=== PATIENT | female | born 1960 | race Caucasian/White ===

== ENCOUNTER 2020-05-02 17:22 | Outpatient (CLI) | payer OTHER, SELFPAY ==
--- NOTE | ~2020-05-02 | MM_ITS ---
EXAMINATION: MM screening [facility] BI w gabrielle HISTORY: Screening mammogram TECHNIQUE: Craniocaudal and mediolateral oblique 3-D tomosynthesis images were obtained and synthetic 2-D images were generated. CAD analysis was submitted and interpreted. COMPARISON: 03/30/2019, 03/26/2018, 03/06/2017 BREAST PARENCHYMAL COMPOSITION: There are scattered areas of fibroglandular density. FINDINGS: There is no evidence of suspicious mass, calcification, or architectural distortion to sugg est malignancy in either breast. There has been no suspicious interval change. IMPRESSION: 1. No mammographic evidence of malignancy. 2. Recommend routine screening mammography in one year. BI-RADS Category 1: Negative Reviewed, dictated and finalized at location A. AL DRILL OPERATOR
== END 2020-05-02 17:23 | disposition home or self-care (01) ==
LOC: ANHIMG 17:32
PROVIDERS: PCP Family Medicine; Visit Provider Family Medicine
DX: Z12.31 Encounter for screening mammogram for malignant neoplasm of breast (principal)
CPT/HCPCS: 77063; 77067

== ENCOUNTER 2021-03-31 00:54 | Day surgery (SDC) | payer OTHER, SELFPAY ==
[2021-03-19 12:38] VITALS: BMI 38.3
[2021-03-31 08:23] VITALS: BP 138/74; PULSE 80; RESP 17; TEMP 36.8; O2SAT 100; BMI 38.1
--- NOTE | 2021-03-31 08:33 | PM.HPGS ---
History of Present Illness History of Present Illness Consent: Risks, benefits, and alternatives have been discussed and questions answered. Patient agrees to proceed with procedure. Chief complaint: neoplasm screening Z12.11 hx of colon polyps z86.0 Narrative: Rebeka Becerril is a 60 year old female referred for colon cancer screening. She had an adenomatous polyp removed 5 years ago Review of Systems Review of Systems: All systems reviewed & are unremarkable except as noted in HPI and below PMFSH Past Medical History Medical History Hypertension Tubular adenoma of colon Family History Family History Father Patient's father is in good health Hypertension Sibling Patient's sister is in good health Family history of diabetes mellitus in first degree relative Diabetes mellitus Mother Family history of dementia, Onset Age: 68 Patient's mother is Cerebrovascular accident Family history of malignant neoplasm of cervix Grandparent Diabetes mellitus Social History Social History Social History: Smoking status: Never smoker Second hand tobacco smoke exposure: No Alcohol intake: former Substance use: never Substance use type: does not use Living arrangements: alone Gender identity (if verbalized by the patient): Female Sexual Orientation (if Verbalized by the Patient): Straight or Heterosexual Spiritual care concerns: No Meds Home Medications and Allergies Home Medications Medication Instructions Recorded Confirmed Type hydrochlorothiazide 12.5 mg tablet 12.5 mg PO DAILY #90 tablet 02/28/21 03/31/21 Rx losartan 50 mg PO BID 03/19/21 03/31/21 History Allergies Allergy/AdvReac Type Severity Reaction Status Date / Time No Known Allergies Allergy Verified 03/31/21 08:22 Vital Signs Vital Signs - 24 hr 03/31/21 08:23 Temperature 36.8 C Pulse Rate 80 Respiratory Rate 17 Blood Pressure 138/74 Pulse Oximetry 100 Exam Resp: Auscultation: clear to auscultation bilaterally Cardio: Rate: regular rate Rhythm: regular rhythm GI: GI Palp: Yes Soft to palpation and No Tenderness to palpation present (GI) Assessment and Plan Assessment and plan (1) Colon cancer screening: Code(s): Z12.11 - Encounter for screening for malignant neoplasm of colon Status: Acute Assessment and Plan: Colonoscopy with possible biopsy or polypectomy or cautery or injection of substances.
[2021-03-31] MEDS: LACTATED RINGERS 1,000 ML 150 ML IV CONT (08:34)
--- NOTE | 2021-03-31 08:44 | P.PNAN_ITS ---
Anes - Initial Pre Proc Eval Procedure: Operation Date: 03/31/21 09:30 Proposed Procedures p Screening Colonoscopy - Herminio Art MD Date/Time: 03/31/21 08:44 Surgeon: Herminio Art MD Pre Op Diagnosis: neoplasm screening Z12.11 hx of colon polyps z86.0 Patient Data Age: 60 Gender: F Height: 1.65 m Weight: 104 kg Last Vital Signs Temp 36.8 C 03/31/21 08:23 Pulse 80 03/31/21 08:23 Resp 17 03/31/21 08:23 BP 138/74 03/31/21 08:23 Pulse Ox 100 03/31/21 08:23 Allergies Allergy/AdvReac Type Severity Reaction Status Date / Time No Known Allergies Allergy Verified 03/31/21 08:22 Home Medications Medication Instructions Recorded Confirmed Type hydrochlorothiazide 12.5 mg tablet 12.5 mg PO DAILY #90 tablet 02/28/21 03/31/21 Rx losartan 50 mg PO BID 03/19/21 03/31/21 History Patient hx anesthesia problems: none Family hx anesthesia problems: post op nausea/vomiting Results Review: All pre-operative results and documents have been reviewed as part of the pre-operative evaluation. [facility] Past Medical History Medical History Hypertension Tubular adenoma of colon Family History Family History Father Patient's father is in good health Hypertension Sibling Patient's sister is in good health Family history of diabetes mellitus in first degree relative Diabetes mellitus Mother Family history of dementia, Onset Age: 68 Patient's mother is Cerebrovascular accident Family history of malignant neoplasm of cervix Grandparent Diabetes mellitus Social History Social History Social History: Smoking status: Never smoker Second hand tobacco smoke exposure: No Alcohol intake: former Substance use: never Substance use type: does not use Living arrangements: alone Gender identity (if verbalized by the patient): Female Sexual Orientation (if Verbalized by the Patient): Straight or Heterosexual Spiritual care concerns: No Anes - Eval Final PreProcedure Day of Procedure 03/31/21 08:44 Patient weight: obese Heart: regular rate and rhythm Lungs: clear to auscultation Airway: Mallampati scale class II Neurological: alert and oriented Last oral intake: >/= 8 hours ASA classification: II Emergent: no Anesthetic plan: proceed Anesthesia type and monitoring: general GIVS and standard monitoring Results Review: All pre-operative results and documents have been reviewed as part of the pre-operative evaluation. Informed Consent: The patient's anesthetic plan and its attendant risks and benefits were discussed with the patient/family/POA. Questions were solicited and answers provided to the satisfaction of the patient/family/POA.
[2021-03-31 09:27] VITALS: BP 113/66; PULSE 68; RESP 17; O2SAT 96
[2021-03-31 09:37] VITALS: BP 115/65; PULSE 66; RESP 14; O2SAT 97
[2021-03-31 09:47] VITALS: BP 117/63; PULSE 65; RESP 17; O2SAT 99
== END 2021-03-31 10:01 | disposition home or self-care (01) ==
PROVIDERS: PCP Family Medicine; Visit Provider Internal Medicine Gastroenterology
PROC: 0DJD8ZZ Inspection of Lower Intestinal Tract, Via Natural or Artificial Opening Endoscopic (ICD-10-PCS; CPT 45378; principal; 2021-03-31 09:30)
DX: Z12.11 Encounter for screening for malignant neoplasm of colon (principal); K57.30 Diverticulosis of large intestine without perforation or abscess without bleeding; Z86.010 Personal history of colon polyps; I10 Essential (primary) hypertension; E66.9 Obesity, unspecified; Z68.38 Body mass index [BMI] 38.0-38.9, adult
CPT/HCPCS: 45378; J2001; J2704; J7120

== ENCOUNTER 2021-06-03 16:27 | Outpatient (CLI) | payer OTHER, SELFPAY ==
--- NOTE | ~2021-06-03 | MM_ITS ---
EXAMINATION: MM screening [facility] BI w agbrielle HISTORY: Screening mammogram TECHNIQUE: Craniocaudal and mediolateral oblique 3-D tomosynthesis images were obtained and synthetic 2-D images were generated. CAD analysis was submitted and interpreted. COMPARISON: 05/02/2020, 03/30/2019, 03/26/2018 bilateral screening mammogram examinations BREAST PARENCHYMAL COMPOSITION: There are scattered areas of fibroglandular density. FINDINGS: There is no evidence of suspicious mass, calcification, or architectural distortion to sugg est malignancy in either breast. There has been no suspicious interval change. IMPRESSION: 1. No mammographic evidence of malignancy. 2. Recommend routine screening mammography in one year. BI-RADS Category 1: Negative Reviewed, dictated and finalized at location A. ION SHOW DIRECTOR
== END 2021-06-03 16:28 | disposition home or self-care (01) ==
LOC: ANHIMG 16:28
PROVIDERS: PCP Family Medicine; Visit Provider Family Medicine
DX: Z12.31 Encounter for screening mammogram for malignant neoplasm of breast (principal)
CPT/HCPCS: 77063; 77067

== ENCOUNTER 2021-08-23 10:17 | Emergency (ER) | payer OTHER, SELFPAY ==
--- NOTE | ~2021-08-23 | XR_ITS ---
EXAMINATION: XR chest 2V DATE: 08/23/2021 10:51 INDICATION: Shortness of breath. Palpitations. TECHNIQUE: Frontal and lateral views of the chest were obtained. COMPARISON: None. FINDINGS: The chest demonstrates clear lungs without pneumonia, pleural effusion, or pneumothorax. Th e heart size is normal. IMPRESSION: 1. No acute cardiopulmonary disease. Reviewed, dictated and finalized at location A. ANCE CONSULTANT
--- NOTE | 2021-08-23 10:29 | ECG_ITS ---
Measurements Intervals [place] Rate: 86 P: -3 FL: 154 QRS: 13 QRSD: 87 T: 21 QT: 364 QTc: 437 Interpretive Statements SINUS RHYTHM POOR R-WAVE PROGRESSION BORDERLINE ECG NO PREVIOUS ECG AVAILABLE FOR COMPARISON Electronically Signed On 08-23-2021 14:33:52 PLASTICS ENGINEERING TEACHER by Adrián Noble M.D.
[2021-08-23 10:31] VITALS: BP 130/78; PULSE 86; RESP 18; TEMP 36.8; O2SAT 100
--- NOTE | 2021-08-23 10:39 | ED.ANXIETY ---
HPI - Anxiety General Chief Complaint: Arrhythmia/Palpitations <ETTA Matias Last Filed: 08/23/21 12:57> Stated Complaint: poss anxiety <ETTA Matias Last Filed: 08/23/21 12:57> Time Seen by Provider: 08/23/21 10:29 <ETTA Matias Last Filed: 08/23/21 12:57> Source: patient <ETTA Matias Last Filed: 08/23/21 12:57> Mode of arrival: EMS <ETTA Matias Last Filed: 08/23/21 12:57> Limitations: no limitations <ETTA Matias Last Filed: 08/23/21 12:57> History of Present Illness HPI narrative: This is a 61-year-old female that presents to the emergency department for acute anxiety. Reports she has had a lot of stress at home and work. Reports she quit her job yesterday. She had seen her primary earlier this week and was started on Escitalopram. Today she was moving things out of her office when she started to become quite anxious. Reports she went to sit on the couch and felt very hot. She felt tingling all over her body. She felt like she had to take deep breaths to catch her breath. She reports feeling better at this time. She did not have any chest pain. Denies thoughts of harming herself or anyone else. <ETTA Matias Last Filed: 08/23/21 12:57> Related Data Allergies/Adverse Reactions: Allergies Allergy/AdvReac Type Severity Reaction Status Date / Time No Known Allergies Allergy Verified 08/23/21 10:36 <ETTA Matias Last Filed: 08/23/21 12:57> Review of Systems Review of Systems: CONSTITUTIONAL: Denies fever CARDIOVASCULAR: Reports palpitations. Denies chest pain or edema. RESPIRATORY: Reports dyspnea. NEUROLOGIC: Denies numbness PSYCHIATRIC: Reports anxiety <ETTA Matias Last Filed: 08/23/21 12:57> All systems reviewed & are unremarkable except as noted in HPI and below <Fanta Michael PA-C - Last Filed: 08/23/21 12:57> [facility] Past Medical History Medical History: Medical History Hypertension Tubular adenoma of colon <Fanta Michael PA-C - Last Filed: 08/23/21 12:57> Family History Family History: Family History Father Patient's father is in good health Hypertension Sibling Patient's sister is in good health Family history of diabetes mellitus in first degree relative Diabetes mellitus Mother Family history of dementia, Onset Age: 68 Patient's mother is Cerebrovascular accident Family history of malignant neoplasm of cervix Grandparent Diabetes mellitus <ETTA Matias Last Filed: 08/23/21 12:57> Social History Social History: Social History (Updated 08/20/21 @ 07:23 by Edith Boateng) Social History: Smoking status: Never smoker Second hand tobacco smoke exposure: No Alcohol intake: former Substance use: never Substance use type: does not use Gender identity (if verbalized by the patient): Female Sexual Orientation (if Verbalized by the Patient): Straight or Heterosexual Spiritual care concerns: No <ETTA Matias Last Filed: 08/23/21 12:57> Exam Narrative: GENERAL: Well-appearing, well-nourished, and in no acute distress. HEAD: Normocephalic, atraumatic. EYES: PERRLA and EOMI. ENT: Nares clear, no rhinorrhea or epistaxis. Mucous membranes moist. Oropharynx without tonsillar hypertrophy exudate or other lesions. Bilateral TMs pearly kurtz non-bulging NECK: Supple. No adenopathy or masses. CHEST: Clear to auscultation. No respiratory distress. No wheezes rales or rhonchi HEART: Regular rate and rhythm. No murmur heard. Normal peripheral pulses. EXTREMITIES: Normal range of motion. No edema. SKIN: Warm, dry, no rash. NEURO: No focal deficits. Alert and oriented x3. Cranial nerves II through XII grossly intact PSYCH: Anxious, tearful <ETTA Matias
[2021-08-23] MEDS: LORazepam INJ (*CRX) 2 MG/ML VIAL 0.5 MG IV PUSH (10:44)
[2021-08-23 11:15] VITALS: BP 107/73; PULSE 76; RESP 18; O2SAT 98
[2021-08-23 11:15] LABS: Basophils Absolute Auto 0.1 K/mm3 (0.0-0.1); Basophils Percent Auto 0.8 % (0.2-1.2); Eosinophils Percent Auto 0.5 % (0-4.4); Hematocrit 42.7 % (37.0-47.0); Immature Granulocyte Absolute 0.04 K/mm3 (0.00-0.031); Immature Granulocyte Percent A 0.7 % (0-0.5); Lymphocytes Absolute Auto 1.23 K/mm3 (0.9-3.2); Lymphocytes Percent Auto 20.7 % (18.3-44.2); Mean Corpuscular HGB Conc 32.8 g/dl (32-36); Mean Corpuscular Hemoglobin 30.2 pg (26-34); Mean Platelet Volume 9.9 fl (7.4-10.4); Monocytes Absolute Auto 0.4 K/mm3 (0.1-0.6); Monocytes Percent Auto 6.6 % (2.6-8.5); Neutrophils Absolute Auto 4.2 K/mm3 (1.3-6.7); Neutrophils Percent Auto 70.7 % (45.5-73.1); Platelet Count Result 290 k/mm3 (150-375); Red Blood Count 4.64 M/mm3 (4.2-5.4); Red Cell Distribution Width 13.8 % (11.5-14.5); White Blood Count 5.9 K/mm3 (4.5-10.0)
[2021-08-23 11:25] LABS: INR 1.1; Prothrombin Time 13.6 Seconds (11.1-14.7)
[2021-08-23 11:26] LABS: Partial Thromboplastin Time 26.4 SECONDS (22.3-36.8)
[2021-08-23 11:27] LABS: Alanine Aminotransferase 30 U/L (4-35); Albumin Level 4.3 g/dL (3.5-5.1); Alkaline Phosphatase 84 U/L (38-126); Anion Gap 9 mmol/L (8-16); Aspartate Amino Transferase 27 U/L (14-36); Bilirubin,Total 0.6 mg/dL (0.2-1.3); Blood Urea Nitrogen 17 mg/dL (7-17); Calcium 8.6 mg/dL (8.4-10.2); Carbon Dioxide 24 mmol/L (22-30); Chloride 102 mmol/L (98-107); Estimated CRCL calculation 75 ml/min; Estimated Glomerular Filt Rate > 60; Glucose 120 mg/dL (65-110); Lipase 160 U/L (23-300); Potassium 3.7 mmol/L (3.4-5.0); Sodium 135 mmol/L (137-145)
[2021-08-23 11:37] LABS: Troponin I < 0.012 ng/mL (0.000-0.034)
[2021-08-23 13:08] VITALS: BP 114/78; PULSE 78; RESP 18; O2SAT 98
== END 2021-08-23 13:13 | disposition home or self-care (01) ==
PROVIDERS: Physician Assistant; Emergency Provider General Practice; PCP Family Medicine
DX: F41.9 Anxiety disorder, unspecified (principal); I10 Essential (primary) hypertension; Z85.038 Personal history of other malignant neoplasm of large intestine; R94.31 Abnormal electrocardiogram [ECG] [EKG]; R06.02 Shortness of breath
CPT/HCPCS: 36415; 71046; 80053; 83690; 84443; 84484; 85025; 85610; 85730; 93005; 96374; 99284; J2060

== ENCOUNTER 2022-08-05 16:27 | Outpatient (CLI) | payer OTHER, SELFPAY ==
--- NOTE | ~2022-08-05 | MM_ITS ---
EXAMINATION: MM screening [facility] BI w gabrielle HISTORY: Screening mammogram TECHNIQUE: Craniocaudal and mediolateral oblique 3-D tomosynthesis images were obtained and synthetic 2-D images were generated. CAD analysis was submitted and interpreted. COMPARISON: 06/03/2021, 05/02/2020, 03/30/2019 bilateral screening mammogram examinations BREAST PARENCHYMAL COMPOSITION: There are scattered areas of fibroglandular density. FINDINGS: Stable circumscribed likely benign lymph node, upper outer right breast There is no evidenc e of suspicious mass, calcification, or architectural distortion to suggest malignancy in either [address] There has been no suspicious interval change. IMPRESSION: 1. No mammographic evidence of malignancy. 2. Recommend routine screening mammography in one year. BI-RADS Category 1: Negative Reviewed, dictated and finalized at location A. ER INSPECTOR
== END 2022-08-05 16:28 | disposition home or self-care (01) ==
PROVIDERS: PCP Family Medicine; Visit Provider Family Medicine
DX: Z12.31 Encounter for screening mammogram for malignant neoplasm of breast (principal)
CPT/HCPCS: 77063; 77067

== ENCOUNTER 2022-08-24 12:54 | Outpatient (CLI) | payer OTHER, SELFPAY ==
--- NOTE | ~2022-08-24 | DEXA_ITS ---
Bone Density Report Name: MARTIR ADEN Age: 62 Sex: Female Ethnicity: White Date of : 1960 Indication: postmenopausal; screening for osteoporosis; Referring Provider: CORAL NELSON Study: Bone densitometry was performed. Exam Date: August 24, 2022 Accession number: [id number] Bone Density: Region BMD T-score Z-score Classification AP Spine(L1, L2, L3) 1.239 2.0 3.5 Normal Femoral Neck (Left) 1.196 3.1 4.5 Normal Total Hip (Left) 1.226 2.3 3.4 Normal Femoral Neck (Right) 1.145 2.7 4.0 Normal Total Hip (Right) 1.194 2.1 3.1 Normal Total Hip Mean 1.210 2.2 3.3 Normal World Health Organization criteria for BMD impression classify patients as: Normal (T-score at or above -1.0), Osteopenia (T-score between -1.0 and -2.5), or Osteoporosis (T-score at or below -2.5). 10-year Fracture Risk: FRAX not reported because: All T-scores for Spine Total, Hip Total, Femoral Neck at or above -1.0 Clinical Information Provided by Patient: Has used the following medications: Vitamin D, Calcium Patient maximum height was 65 Menopause Age: 54 No regular weight bearing exercise Does not regularly consume dairy products Onset of menses at age 11 Number of children 2 Impression: The patient has normal bone mass. Discussion: LOW RISK OF FRACTURE; BONE DENSITY IS WELL ABOVE THE MINIMUM DESIRABLE LEVEL AND ABOVE AVERAGE FOR AGE AND SEX AT ALL SKELETAL SITES TESTED. This person's bone density is above expected limits for age and sex. This is rarely clinically significant, but should be pursued if there are significant musculoskeletal complaints. The patient should follow a healthful lifestyle (good nutrition with adequate calcium and vitamin D, and appropriate weight-bearing exercise). Follow-Up: Consider repeating this study in 5 years or sooner if there is some new clinical indication. Reported by: [facility] on 08/24/2022 1:19:00 PM. Reviewed, dictated and finalized at location AJose Juan GASTON
== END 2022-08-24 12:55 | disposition home or self-care (01) ==
LOC: ANHIMG 12:55
PROVIDERS: PCP Family Medicine; Visit Provider Family Medicine
DX: Z78.0 Asymptomatic menopausal state (principal)
CPT/HCPCS: 77080

== ENCOUNTER 2022-12-07 16:43 | Outpatient (CLI) | payer OTHER, SELFPAY ==
--- NOTE | ~2022-12-07 | XR_ITS ---
Left foot Technique: AP, oblique, and lateral views were obtained. Clinical History: Swelling/mass over fifth metatarsal Findings: No acute fracture or dislocation is seen. Osseous alignment is anatomic. Joint spaces are p reserved without erosive or degenerative change. Soft tissues are unremarkable. Impression: No significant abnormality seen. Consider MR to further evaluate for soft tissue mass, as indicated. Reviewed, dictated and finalized at location . Impression: No significant abnormality seen. Consider MR to further evaluate for soft tissu e mass, as indicated.
== END 2022-12-07 16:44 | disposition home or self-care (01) ==
PROVIDERS: PCP Family Medicine; Visit Provider Physician Assistant
DX: R22.42 Localized swelling, mass and lump, left lower limb (principal)
CPT/HCPCS: 73630

== ENCOUNTER 2023-10-22 07:16 | Outpatient (CLI) | payer OTHER, SELFPAY ==
--- NOTE | ~2023-10-22 | MM_ITS ---
EXAMINATION: MM screening [facility] BI w gabrielle HISTORY: Screening mammogram TECHNIQUE: Craniocaudal and mediolateral oblique 3-D tomosynthesis images were obtained and synthetic 2-D images were generated. CAD analysis was submitted and interpreted. COMPARISON: August 05, 2022, June 03, 2021 bilateral screening mammogram examination this BREAST PARENCHYMAL COMPOSITION: There are scattered areas of fibroglandular density. FINDINGS: There is no evidence of suspicious mass, calcification, or architectural distortion to sugg est malignancy in either breast. There has been no suspicious interval change. IMPRESSION: 1. No mammographic evidence of malignancy. 2. Recommend routine screening mammography in one year. BI-RADS Category 1: Negative Reviewed, dictated and finalized at location A.
== END 2023-10-22 07:17 | disposition home or self-care (01) ==
LOC: ANHIMG 07:19
PROVIDERS: PCP Family Medicine; Visit Provider Family Medicine
DX: Z12.31 Encounter for screening mammogram for malignant neoplasm of breast (principal)
CPT/HCPCS: 77063; 77067

== ENCOUNTER 2024-12-14 15:48 | Outpatient (CLI) | payer OTHER, SELFPAY ==
--- NOTE | ~2024-12-14 | MM_ITS ---
EXAMINATION: MM screening [facility] BI w gabrielle HISTORY: Screening mammogram TECHNIQUE: Craniocaudal and mediolateral oblique 3-D tomosynthesis images were obtained and synthetic 2-D images were generated. CAD analysis was submitted and interpreted. COMPARISON: 10/22/2023, 08/05/2022: 06/03/2021 BREAST PARENCHYMAL COMPOSITION:Not Dense. The breasts are almost entirely fatty FINDINGS: No suspicious mass, calcification, or architectural distortion are identified in either jennifer ast to suggest malignancy. There has been no suspicious interval change. IMPRESSION: No mammographic evidence of malignancy. Recommend routine screening mammography in one year. BI-RADS Category 1: Negative Reviewed, dictated and finalized at location .
== END 2024-12-14 15:49 | disposition home or self-care (01) ==
LOC: ANHIMG 16:14
PROVIDERS: PCP Family Medicine; Visit Provider Family Medicine
DX: Z12.31 Encounter for screening mammogram for malignant neoplasm of breast (principal)
CPT/HCPCS: 77063; 77067